=== PATIENT | female | born 1975 | race Caucasian/White ===

== ENCOUNTER 2020-01-14 00:29 | Outpatient (CLI) | payer OTHER, SELFPAY ==
[2020-01-14 18:07] LABS: SARS-CoV-2 RNA PCR Negative
== END 2020-01-14 00:30 | disposition home or self-care (01) ==
LOC: ANHCOVIDDT 00:29
PROVIDERS: PCP Nurse Practitioner Family; Visit Provider Internal Medicine Gastroenterology
DX: Z01.812 Encounter for preprocedural laboratory examination (principal); Z20.828 Contact with and (suspected) exposure to other viral communicable diseases
CPT/HCPCS: 87635; C9803; U0003

== ENCOUNTER 2020-01-16 01:37 | Day surgery (SDC) | payer OTHER, SELFPAY ==
[2020-01-09 13:05] VITALS: BMI 37.0
[2020-01-16 08:21] VITALS: BP 124/68; PULSE 70; RESP 16; TEMP 36.4; O2SAT 97
[2020-01-16] MEDS: LACTATED RINGERS 1,000 ML 150 ML IV CONT (08:28)
--- NOTE | 2020-01-16 08:35 | PM.HPGS ---
History of Present Illness History of Present Illness Consent: Risks, benefits, and alternatives have been discussed and questions answered. Patient agrees to proceed with procedure. 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 Patient has had subacute diarrhea for least 2 months duration. She has postprandial loose stools. Prior to this time she had history of constipation. She states she was being evaluated 3 years ago for constipation on the CT scan revealed a questionable colitis she was post a colonoscopy but this was not done because she never could tolerate a bowel prep. No family history of colon cancer or inflammatory bowel disease. Patient denies any new medications no travel. No antibiotic exposure. No exposure to patients with C diff. She denies any increased stress. She has a history of idiopathic thrombocytopenia her platelet count a week ago 67,000 she has had 5 doses of dexamethasone. [facility] Past Medical History Medical History Asthma Diabetes type 2, controlled GERD (gastroesophageal reflux disease) History of back injury History of thrombocytopenia Hyperlipidemia Hypertension Hypothyroidism Surgical History Surgical History History of x2 History of cholecystectomy History of hysterectomy History of tubal ligation Meds Home Medications and Allergies Home Medications Medication Instructions Recorded Confirmed Type atorvastatin 40 mg PO DAILY 01/09/20 01/09/20 History levothyroxine 50 mcg PO DAILY 01/09/20 01/09/20 History metoprolol succinate 25 mg PO DAILY 01/09/20 01/09/20 History omeprazole 40 mg PO DAILY 01/09/20 01/09/20 History semaglutide [Ozempic] 0.25 mg SUBCUT WEEKLY 01/09/20 01/09/20 History valacyclovir 500 mg PO DAILY 01/09/20 01/09/20 History Allergies Allergy/AdvReac Type Severity Reaction Status Date / Time No Known Allergies Allergy Verified 01/16/20 08:20 Vital Signs Vital Signs - 24 hr 01/16/20 08:21 Temperature 36.4 C Pulse Rate 70 Respiratory Rate 16 Blood Pressure 124/68 Pulse Oximetry 97 Exam Const: Orientation/consciousness: patient oriented x3 Resp: Auscultation: clear to auscultation bilaterally Cardio: Rate: regular rate Rhythm: regular rhythm Heart sounds: no murmurs GI: GI Palp: Yes Soft to palpation, No Tenderness to palpation present (GI), Yes No hepatosplenomegaly present and No Palpable mass present Auscultation: normal bowel sounds Neuro: General: patient oriented x3 and no focal motor deficits Extrem: General: no pedal edema Assessment and Plan Additional Plan Colonoscopy for evaluation of chronic diarrhea
[2020-01-16 08:45] LABS: Glucose Point of Care 198 (65-105)
--- NOTE | 2020-01-16 08:49 | WPDANESEPPF ---
Anes - Initial Pre Proc Eval Procedure: Operation Date: 01/16/20 09:30 Proposed Procedures p Colonoscopy - Rayshawn Winters MD Date/Time: 01/16/20 08:49 Surgeon: Rayshawn Winters MD Pre Op Diagnosis: colitis, chronic diarrhea Patient Data Age: 44 Gender: F Height: 1.6 m Weight: 91.5 kg Last Vital Signs Temp 36.4 C 01/16/20 08:21 Pulse 70 01/16/20 08:21 Resp 16 01/16/20 08:21 BP 124/68 01/16/20 08:21 Pulse Ox 97 01/16/20 08:21 Allergies Allergy/AdvReac Type Severity Reaction Status Date / Time No Known Allergies Allergy Verified 01/16/20 08:20 Home Medications Medication Instructions Recorded Confirmed Type atorvastatin 40 mg PO DAILY 01/09/20 01/09/20 History levothyroxine 50 mcg PO DAILY 01/09/20 01/09/20 History metoprolol succinate 25 mg PO DAILY 01/09/20 01/09/20 History omeprazole 40 mg PO DAILY 01/09/20 01/09/20 History semaglutide [Ozempic] 0.25 mg SUBCUT WEEKLY 01/09/20 01/09/20 History valacyclovir 500 mg PO DAILY 01/09/20 01/09/20 History Laboratory Tests 01/16/20 08:42 POC Capillary Glucose 198 mg/dl H mg/dl (65-105) Patient hx anesthesia problems: none Family hx anesthesia problems: none PMFSH Past Medical History Medical History Asthma Diabetes type 2, controlled GERD (gastroesophageal reflux disease) History of back injury History of thrombocytopenia Hyperlipidemia Hypertension Hypothyroidism Surgical History Surgical History History of x2 History of cholecystectomy History of hysterectomy History of tubal ligation Anes - Eval Final PreProcedure Day of Procedure 01/16/20 08:49 Patient weight: obese Heart: regular rate and rhythm Lungs: clear to auscultation and normal air movement Airway: Mallampati scale class III Neurological: alert and oriented Last oral intake: >/= 8 hours ASA classification: III Emergent: no Anesthetic plan: proceed Anesthesia type and monitoring: general GIVS and standard monitoring Informed Consent: The patient's anesthetic plan and its attendant risks and benefits were discussed with the patient/family/POA. Questions were solicited and answers provided to the satisfaction of the patient/family/POA.
[2020-01-16 10:08] VITALS: BP 127/75; PULSE 72; RESP 26; O2SAT 96
[2020-01-16 10:18] VITALS: BP 130/81; PULSE 74; RESP 27; O2SAT 96
[2020-01-16 10:28] VITALS: BP 138/85; PULSE 68; RESP 17; O2SAT 98
== END 2020-01-16 10:49 | disposition home or self-care (01) ==
PROVIDERS: PCP Nurse Practitioner Family; Visit Provider Internal Medicine Gastroenterology
PROC: 0DJD8ZZ Inspection of Lower Intestinal Tract, Via Natural or Artificial Opening Endoscopic (ICD-10-PCS; CPT 45378; principal; 2020-01-16 09:30)
DX: R19.7 Diarrhea, unspecified (principal); K64.1 Second degree hemorrhoids; I10 Essential (primary) hypertension; E78.5 Hyperlipidemia, unspecified; E03.9 Hypothyroidism, unspecified; E11.9 Type 2 diabetes mellitus without complications; J45.909 Unspecified asthma, uncomplicated; K21.9 Gastro-esophageal reflux disease without esophagitis; E66.9 Obesity, unspecified; Z68.35 Body mass index [BMI] 35.0-35.9, adult
CPT/HCPCS: 45380; 88305; J2704; J7120